=== PATIENT | female | born 1965 | race Caucasian/White ===

== ENCOUNTER → 2022-01-11 | Outpatient (CLI) | payer BC | LOC: HEART 5 13:28 | DX: J44.9 Chronic obstructive pulmonary disease, unspecified (principal); E78.00 Pure hypercholesterolemia, unspecified | CPT/HCPCS: 71046; 94010; 94729 ==

== ENCOUNTER 2022-05-21 18:13 | Emergency (ER) | payer BC ==
[2022-05-21 19:24] LABS: HEMOGLOBIN 13.7 gm/dl (12.3-15.3); RED BLOOD COUNT 4.59 M/UL (4.00-5.10); WHITE BLOOD COUNT 7.1 K/UL (4.5-11.0)
[2022-05-21 20:00] LABS: BUN/CREATININE RATIO 33 (0-10)
[2022-05-21] MEDS ORDERED: POTASSIUM CHLO20 ME1 PO (22:49)
== END 2022-05-21 23:06 | disposition home or self-care (01) ==
LOC: ER1 18:13
PROVIDERS: Nurse Practitioner
DX: E87.6 Hypokalemia (principal); R00.2 Palpitations; I10 Essential (primary) hypertension
CPT/HCPCS: 71045; 80053; 81001; 82550; 82553; 83735; 84100; 84439; 84443; 84484; 85025; 87086; 93005; 99285